=== PATIENT | female | born 1970 | race Caucasian/White ===

== ENCOUNTER → 2020-07-31 15:59 | Outpatient (CLI) | payer OTHER, SELFPAY ==
--- NOTE | 2020-07-31 16:04 | DI.MG.S_ITS ---
BILATERAL DIGITAL SCREENING MAMMOGRAM 3D/2D WITH CAD: 07/31/2020 CLINICAL: Routine screening. Comparison is made to exams dated: 03/09/2016 mammogram, 03/03/2017 mammogram, and 02/22/2018 mammogram - [facility]. There are scattered fibroglandular elements in both breasts. Current study was also evaluated with a Computer Aided Detection (CAD) system. No significant masses, calcifications, or other findings are seen in either breast. There has been no significant interval change. IMPRESSION: NEGATIVE There is no mammographic evidence of malignancy. A 1 year screening mammogram is recommended. This exam was interpreted at Station ID: [id number]. NOTE: For mammograms, a report in lay terms will be sent to the patient. Approximately 15% of breast malignancies will not be visualized mammographically. In the management of a palpable breast mass, a negative mammogram must not discourage biopsy of a clinically suspicious lesion. Electronically Signed By: Victor M villatoro/julieta:07/31/2020 19:12:46 letter sent: Normal Exam ACR BI-RADS Category 1: Negative [id number]
== END ==
PROVIDERS: Referring Provider Student in an Organized Health Care Education/Training Program; Visit Provider Student in an Organized Health Care Education/Training Program
DX: Z12.31 Encounter for screening mammogram for malignant neoplasm of breast (principal)
CPT/HCPCS: 77063; 77067

== ENCOUNTER → 2020-10-28 09:35 | Outpatient (CLI) | payer OTHER, SELFPAY ==
[2020-10-28 12:11] LABS: COVID19 -Nasal RAPID Negative (Negative)
== END ==
PROVIDERS: Visit Provider Physician Assistant
DX: Z01.812 Encounter for preprocedural laboratory examination (principal); Z20.822 Contact with and (suspected) exposure to COVID-19
CPT/HCPCS: 87635

== ENCOUNTER 2020-10-30 08:45 | Day surgery (SDC) | payer OTHER, SELFPAY ==
--- NOTE | 2020-10-30 | PATH_ITS ---
[facility] Accession Number: [id number] . 01 Material submitted: . PART A: gastrointestinal site - GASTRIC PART B: esophagus - ESOPHAGEAL . 01 Clinical history: . A: R/O H. PYLORI B: R/O GIVENS'S . . 02 Diagnosis: A. Stomach, Biopsy: Antral and body type mucosa with mild chronic gastritis. Negative for Helicobacter by immunohistochemistry. Negative for intestinal metaplasia. Negative for dysplasia and malignancy. . B. Esophagus, Biopsy: Squamocolumnar junctional mucosa with no diagnostic abnormality. Negative for intestinal metaplasia. Negative for dysplasia and malignancy. . [facility] 11/05/2020 1426 Local . 02 Electronically signed: . Joan Jones MD, Pathologist NPI- [id number] . 01 Gross description: . Part A: GASTRIC: Received in formalin are 2 fragment(s) of hill, soft tissue measuring 0.3 x 0.2 x 0.2 cm to 0.3 x 0.2 x 0.1 cm submitted entirely in 1 cassette(s) Part B: ESOPHAGEAL: Received in formalin are 2 fragment(s) of hill, soft tissue measuring 0.3 x 0.2 x 0.1 cm to 0.3 x 0.2 x 0.1 cm submitted entirely in 1 cassette(s) /JOSE 10/31/2020 0555 Local . 02 Microscopic: . A. An immunohistochemical stain was performed to evaluate for Helicobacter organisms and is negative. The control stain showed appropriate reactivity. . B. An alcian blue stain was performed to evaluate for intestinal metaplasia and is negative. The control stain showed appropriate reactivity. . * This test was developed and its performance characteristics determined by [employer] [facility] [employer]. It has not been cleared or approved by the U.[place]. Food and Drug Administration. The FDA has determined that such clearance or approval is not necessary. This test is used for clinical purposes. It should not be regarded as investigational or for research. . 02 Pathologist provided ICD-10: K21.9 . 02 CPT . 724435, 676158, 298927, K59221 Performed at: 01 [facility] [address] [id number] MD Andreas Jacobs MD Phone: [phone] Performed at: 02 [facility] [address] [place] [id number] MD Joan Jones MD Phone: [phone]
[2020-10-30 09:06] VITALS: BP 128/90; PULSE 85; RESP 16; TEMP 35.9; O2SAT 97; BMI 38.3
[2020-10-30] MEDS: SODIUM CHLORIDE 0.9% 1,000 ML 84 ML IV (09:25)
--- NOTE | 2020-10-30 10:08 | P.HP_ITS ---
History of Present Illness History of Present Illness Date Patient Seen: 10/30/20 Chief complaint: SDC Narrative: Poorly-controlled GE reflux and need for colorectal cancer screening. Patient History Family & Social History Social History: household members spouse Tobacco & Substance use: Smoking Status Never smoker alcohol intake current alcohol intake frequency a few times a week Substance Use Type does not use Meds Home Medications and Allergies Home Medications Medication Instructions Recorded Confirmed Type amlodipine 5 mg PO DAILY 10/30/20 10/30/20 History atorvastatin 20 mg PO DAILY 10/30/20 10/30/20 History dulaglutide [Trulicity] 0.75 mg SUBCUT WEEKLY 10/30/20 10/30/20 History furosemide 20 mg PO Q OTHER DAY 10/30/20 10/30/20 History hydrochlorothiazide 25 mg PO DAILY 10/30/20 10/30/20 History lisinopril 40 mg PO DAILY 10/30/20 10/30/20 History metformin 500 mg PO DAILY 10/30/20 10/30/20 History omeprazole 20 mg PO BID 10/30/20 10/30/20 History Allergies Allergy/AdvReac Type Severity Reaction Status Date / Time No Known Drug Allergies Allergy Verified 10/30/20 09:01 Exam Vital Signs (past 8 hours): - 10/30/20 09:06 Temperature 96.6 F L Pulse Rate 85 Respiratory Rate 16 Blood Pressure 128/90 Pulse Oximetry 97 Oxygen Delivery Method Room Air Oxygen Flow Rate 0 Narrative Exam Narrative: Oropharynx free of lesions Chest clear to auscultation percussion Cardiac exam reveals no S3 or murmur Assessment & Plan Assessment & Plan narrative: Poorly-controlled GE reflux and 1st colonoscopy for colorectal cancer screening. Risks, benefits, alternatives have been radha reddy
--- NOTE | 2020-10-30 10:10 | PM.OP.ENDO ---
Operative Date/Time/Diagnoses Date of procedure: 10/30/20 Pre-op diagnosis: See indication and findings Procedure & Clinicians Study performed: EGD and colonoscopy Same procedure as scheduled: Yes Indications: poorly-controlled GE reflux and 1st screening for colorectal cancer. Surgeon: Young Mclaughlin Procedure Notes Procedure in detail: After informed consent was obtained the patient was placed in left lateral decubitus position. The video upper scope was placed into the oropharynx and with the patient's help swelled into the esophagus. The esophagus, stomach, duodenum were carefully examined. On withdrawal retroflexed view the GE junction was performed. The scope was removed patient tolerated procedure well. The patient was then turned and the colonoscope substituted. This was introduced the rectum slowly advanced cecum. Preparation was good. On slow withdrawal the mucosa was carefully examined. The scope was removed. The patient tolerated procedure well. Blood loss none Complications none Sedation Total sedation time 24 minutes Versed 8 mg fentanyl 100 micro g IV titration Findings EGD 1. Esophagus with an irregular Z-line but with careful evaluation most irregularities below the top of the GB folds. One area of pink tissue extended perhaps 0.5 cm above the top of the GB folds in this was biopsied. 2. Scattered patchy gastric erythema in the pre-pyloric and antral regions. Biopsies taken to rule out H.pylori 3. Normal duodenal bulb and sweep Colonoscopy 1. Normal colonoscopy to cecum Center should have follow-up colonoscopy in 10 years. We will be in touch regarding her biopsies and whether she needs follow-up for very short segment Valle's esophagus.
[2020-10-30] MEDS: fentaNYL 250 MCG/5 ML INJ IV (10:13)
[2020-10-30] MEDS: MIDAZOLAM 5 MG/5 ML VIAL IV (10:14)
[2020-10-30 10:42] VITALS: BP 123/79; PULSE 85; RESP 19; TEMP 36.7; O2SAT 96
[2020-10-30 10:50] VITALS: BP 119/80; PULSE 89; RESP 16; O2SAT 96
[2020-10-30 10:54] VITALS: BP 120/76; PULSE 83; RESP 17; TEMP 36.5; O2SAT 94
[2020-10-30 11:05] VITALS: BP 125/83; PULSE 86; RESP 20; TEMP 36.7; O2SAT 98
--- NOTE | 2020-10-30 11:17 | SUR.PHASEII ---
Pt up dressed. DC to home in WC to spouse at car. Denies pain or nausea.
== END 2020-10-30 11:17 | disposition home or self-care (01) ==
PROVIDERS: PCP Student in an Organized Health Care Education/Training Program; Referring Provider Internal Medicine Gastroenterology; Visit Provider Internal Medicine Gastroenterology
PROC: 0DJ08ZZ Inspection of Upper Intestinal Tract, Via Natural or Artificial Opening Endoscopic (ICD-10-PCS; CPT 43235; 2020-10-30 10:00)
PROC: 0DJD8ZZ Inspection of Lower Intestinal Tract, Via Natural or Artificial Opening Endoscopic (ICD-10-PCS; CPT 45378; 2020-10-30 10:00)
DX: Z12.11 Encounter for screening for malignant neoplasm of colon (principal); K21.9 Gastro-esophageal reflux disease without esophagitis; E11.9 Type 2 diabetes mellitus without complications; I10 Essential (primary) hypertension; J45.909 Unspecified asthma, uncomplicated; K29.50 Unspecified chronic gastritis without bleeding
CPT/HCPCS: 43239; 45378; J2250; J3010